=== PATIENT | male | born 1945 | race Hispanic/Latino ===

== ENCOUNTER 2022-08-19 17:38 | Emergency (ER) | payer OTHER ==
[~2022-08-19] VITALS: Ht 167.6 cm; Wt 106.6 kg
[2022-08-19 18:38] LABS: BASOPHILS % (AUTO) 0.8 % (0.0-5.0); EOSINOPHILS % (AUTO) 2.6 % (0.0-8.0); HEMATOCRIT 44.1 % (42-54); LYMPHOCYTES % (AUTO) 28.6 % (21.0-51.0); MEAN CORPUSCULAR HGB CONC 30.4 g/dL (32.0-36.0); MEAN CORPUSCULAR VOLUME 92.3 fL (79-99); MONOCYTES % (AUTO) 10.9 % (3.0-13.0); NEUTROPHILS % (AUTO) 56.3 % (40.0-77.0); PLATELET COUNT (AUTO) 174 K/uL (130-400); RED BLOOD CELL COUNT(AUTO) 4.78 MIL/uL (4.50-6.20); RED CELL DISTRIBUTION WIDTH 14.3 % (11.0-15.5); WHITE BLOOD COUNT (AUTO) 8.8 K/uL (4.8-10.8)
[2022-08-19 18:48] LABS: CREATININE 1.5 mg/dL (0.5-1.5); POTASSIUM 3.9 mmol/L (3.5-5.1)
[2022-08-19 18:52] LABS: ALBUMIN 3.6 g/dL (3.5-5.0)
[2022-08-19] MEDS ORDERED: METOPROLOL TARTRATE 1 MG/ML 5ML VIAL IV ONE (20:30)
[2022-08-19] MEDS ORDERED: METO25TA6 PO (21:02)
[2022-08-19 21:20] VITALS: BP 149/82
== END 2022-08-19 21:29 | disposition home or self-care (01) ==
LOC: EDH 17:38
DX: I49.3 Ventricular premature depolarization (principal); I10 Essential (primary) hypertension; Z79.899 Other long term (current) drug therapy
CPT/HCPCS: 99285; 96374; 71045; 83735; 84484; 80053; 85025; 36415; 93005; J3490

== ENCOUNTER 2023-11-22 11:56 | Emergency (ER) | payer OTHER ==
[~2023-11-22] VITALS: Ht 167.6 cm; Wt 108.9 kg
[~2023-11-22 11:56] MED LIST: METO25TA6 PO
[2023-11-22 12:31] LABS: SARS-CoV-2, RNA, NAAT NEGATIVE SARS CoV-2 (NEGATIVE)
[2023-11-22 12:36] LABS: INFLUENZA TYPE A Negative For Type A (NEGATIVE); INFLUENZA TYPE B Negative For Type B (NEGATIVE)
[2023-11-22 12:50] VITALS: PULSE 80; RESP 20
[2023-11-22] MEDS: ALBUTEROL 0.083% 2.5 MG/3 ML INH IH ONE (12:51)
[2023-11-22] MEDS: BUDESONIDE 0.5 MG/2 ML INH IH SCH (12:53)
[2023-11-22 13:21] VITALS: BP 139/69; PULSE 87; RESP 18; O2SAT 97
[2023-11-22] MEDS ORDERED: ALBUHFA IH (14:16)
[2023-11-22] MEDS ORDERED: BENZ-39 PO (14:16)
[2023-11-22] MEDS: BUDESONIDE 0.5 MG/2 ML INH IH ONE (14:29)
== END 2023-11-22 14:32 | disposition home or self-care (01) ==
LOC: EDH 11:56
DX: J06.9 Acute upper respiratory infection, unspecified (principal); J98.01 Acute bronchospasm; E78.00 Pure hypercholesterolemia, unspecified; I10 Essential (primary) hypertension; Z79.51 Long term (current) use of inhaled steroids; Z90.49 Acquired absence of other specified parts of digestive tract; Z20.822 Contact with and (suspected) exposure to COVID-19
CPT/HCPCS: 71045; 87635; 87804; 94640